=== PATIENT | male | born 1940 | race Caucasian/White ===

== ENCOUNTER 2017-08-31 16:06 | Observation (INO) | payer MEDICARE, OTHER ==
[~2017-08-31] VITALS: Ht 177.8 cm; Wt 94.4 kg
--- NOTE | ~2017-08-31 | HEMODYNAMI ---
PATIENT:JACK BRUNO MEDICAL RECORD: [id number] : 36 [id number] ADMISSION DATE: 08/31/17 Generatedon:09/01/201710:55 Patient name: JACK BRUNO Patient #: [id number] SSN: : 1940 Date of study: 09/01/2017 Page: Of Hemodynamic Procedure Report Patient Data Patient Demographics Procedure consent was obtained First Name: JACK Gender: Male Last Name: DAMION : 1940 [facility] Initial: M Age: 77 year(s) Patient #: [id number] Race: Unknown Additional ID: [id number] Contact details Address: [address] [place] [address] State: [place] City: [place] Zip code: [address] Past Medical History Allergies: No known allergies Admission Admission Data Admission Date: 08/31/2017 Admission Time: 16:06 Room #: D2119 Lab Results Lab Result Date: 09/01/2017 Lab Result Time: 0:00 Biochemistry Name Units Result Min Max BUN mg/dl 14 --(--*-)-- 7 18 Creatinine mg/dl 0.9 --(-*--)-- 0.6 1.3 CBC Name Units Result Min Max Hemoglobin g/dl 12.7 -*(----)-- 13.5 17.5 Procedure Procedure Types Cath Procedure Diagnostic Procedure [facility] w/Coronaries PCI Procedure Coronary Stent Coronary Stent Initial Miscellaneous Procedures Moderate Sedation up to 45 minutes Procedure Description Procedure Date Procedure Date: 09/01/2017 Procedure Start Time: 10:11 Procedure End Time: 10:54 Procedure Staff Name Function Agus Garcia MD Performing Physician Yobani Eubanks RN Nurse Miguelina Darnell RT Monitor Katia Arevalo RT Scrub Joy Pedersen RT Monitor Procedure Data Cath Procedure Fluoroscopy Diagnostic fluoroscopy Total fluoroscopy Time: time: 11.5 min 11.5 min Diagnostic fluoroscopy Total fluoroscopy dose: dose: 1117 mGy 1117 mGy Contrast Material Contrast Material Type Amount (ml) Isovue 300 84 Entry Location Entry Primary Successful Side Size Upsize Upsize Entry Closure Succes sful Closure Location (Fr) 1 (Fr) 2 (Fr) Remarks Device Remarks Radial Right 6 Fr artery Short Femoral Right 6 Fr Exoseal artery Short Estimated blood loss: 10 ml Diagnostic catheters Device Type Used For End Catheter Placement Terumo 5Fr David 110cm Procedure catheter Diagnostic Terumo 5Fr Procedure [place] 110cm catheter Procedure Complications No complications Procedure Medications Medication Administration Route Dosage 0.9% NaCl I.V. 100 ml/hr Oxygen NC 2 l/min Heparin Flush Bag added to field 2 bags (1000units/500ml NS) Lidocaine 2% added to field 20 Radial Cocktail added to field 1 syringe (Verapomil 2mg/Nitro 400mcg/Heparin 1500units) Versed I.V. 2 mg Fentanyl I.V. 25 mcg Radial Cocktail I.A. 1 syringe (Verapomil 2mg/Nitro 400mcg/Heparin 1500units) Angiomax (bolus) I.V. 15 ml Fentanyl I.V. 50 mcg Versed I.V. 1 mg Versed I.V. 1 mg Angiomax Drip I.V. drip 35 ml/hr (250mg/50ml NS) (Standard) Angiomax Drip I.V. drip 35 ml/hr (250mg/50ml NS) (Standard) Hemodynamics Rest HGB: 12.7 (g/dl) Heart Rate: 71 (bpm) Pressure Samples Time Site Value (mmHg) Purpose Heart Use Rate(bpm) 10:20 LV 126/-4,13 EDP 74 10:21 AO 99/55(75) Pullback 78 10:21 LV 115/7,5 Pullback 78 Gradients Valve Time Site 1 Site 2 Mean SEP/DFP Peak To Heart Use (mmHg) (sec/min) Peak Rate (mmHg) (bpm) Aortic 10:21 LV AO 15 20 16 78 115/7,5 99/55(75) Calculations Valve P-P Mean Valve Index Valve Source Name Gradient Area Flow (cm2) Aortic 16 15 16 15 Snapshots Pre Cath Intra NCS Post Cath Vital Signs Time Heart Resp SPO2 etCO2 NIBP (mmHg) Rhythm Pain Sedation Rate (ipm) (%) (mmHg) Status Level (bpm) 9:44:45 72 16 98 29.2 154/80(117) NSR 0 (11) 10(A) , No pain 9:49:31 68 14 97 36.7 139/70(108) NSR 0 (11) 10(A) , No pain 9:54:26 75 19 98 10.4 72/44(60) NSR 0 (11) 10(A) , No pain 9:59:36 73 23 94 0 127/77(99) NSR 0 (11) 10(A) , No pain 10:04:22 80 17 90 0 121/76(98) NSR 0 (11) 10(A) , No pain 10:09:07 70 16 95 0 137/74(97) NSR 0 (11) 10(A) , No pain 10:14:29 70 17 96 38.2 117/66(90) NSR 0 (11) 10(A) , No pain 10:19:13 72 14 96 0 116/70(90) NSR 0 (11) 10(A) , No pain 10:23:56 74 20 96 11.2 130/69(102) NSR 0 (11) 10(A) , No pain 10:28:41 69 18 96 26.2 129/69(102) NSR 0 (11) 10(A) , No pain 10:33:30 70 16 98 17.9 141/66(99) NSR 0 (11) 10(A) , No pain 10:38:08 74 23 94 0 117/70(91) NSR 0 (11) 10(A) , No pain 10:42:51 72 15 95 17.9 121/59(96) NSR 0 (11) 9(A) , No pain 10:47:34 74 15 99 35.9 132/73(110) NSR 0 (11) 9(A) , No pain 10:52:22 72 6 78 2.2 131/69(98) NSR 0 (11) 9(A) , No pain Medications Time Medication Route Dose Verified Delivered Reason Note s Effectiveness by by 9:46:16 0.9% NaCl I.V. 100 Yobani Per physician ml/hr Raimundo WILBURN 9:46:30 Oxygen NC 2 l/min Yobani Yobani Per physician Lorigan Lorigan RN RN 9:46:56 Heparin Flush added 2 bags Yobani Yobani used for Bag to Raimundo Eubanks procedure (1000units/500ml field RN RN NS) 9:47:13 Lidocaine 2% added 20ml Yobani Yobani for local to vial Lorigan Lorlinda anesthetic field RN RN 9:47:25 Radial Cocktail added 1 Yobani Yobani for (Verapomil to syringe Lorigan Raimundo vasodilation 2mg/Nitro field RN RN 400mcg/Heparin 1500units) 10:12:23 Versed I.V. 2 mg Yobani Yobani for sedation Raimundo Eubanks RN RN 10:12:34 Fentanyl I.V. 25 mcg Yobani Yobani for sedation Raimundo Eubanks RN RN 10:13:37 Radial Cocktail I.A. 1 Yobani Agus for (Verapomil syringe Raimundo Garcia MD vasodilation 2mg/Nitro RN 400mcg/Heparin 1500units) 10:33:17 Angiomax (bolus) I.V. 15 ml Yobani Yobani for Lorigan Raimundo anticoagulation RN RN 10:33:35 Fentanyl I.V. 50 mcg Yobani Yobani for sedation Raimundo Eubanks RN RN 10:34:20 Versed I.V. 1 mg Yobani Yobani for sedation Raimundo Eubanks RN RN 10:36:08 Versed I.V. 1 mg Yobani Yobani for sedation Raimundo Eubanks RN RN 10:37:16 Angiomax Drip I.V. 35 Yobani Yobani for (250mg/50ml NS) drip ml/hr Raimundo Eubanks anticoagulation (Standard) RN RN 10:46:56 Angiomax Drip I.V. 35 Yobani Yobani to sharp's (250mg/50ml NS) drip ml/hr Alysaigan Lorigan (Standard) RN bending machine operator Log Time Note 9:12:37 Time tracking: Regular hours 9:12:42 Plan of Care:Hemodynamics will remain stable., Cardiac rhythm will remain stable., Comfort level will be maintained., Respiratory function will remain adequate., Patient/ family verbilizes understanding of procedure., Procedure tolerated without complication., Recovers from procedure without complications.. 9:29:52 Miguelina Darnell RT(R) sent for patient. Start room use. 9:37:38 Patient received from PCU to CCL 1 Alert and oriented. Tansferred to table in Supine position. 9:37:39 Warm blankets applied, and esther hugger turned on for patient comfort. 9:37:40 Correct patient and procedure confirmed by team. 9:37:41 Signed procedure consent form obtained from patient. 9:37:42 ECG and BP/O2 sat monitors applied to patient. 9:37:43 Full Disclosure recording started 9:43:44 Vital chart was started 9:43:51 Baseline sample Acquired. 9:43:54 Rhythm: sinus rhythm 9:44:18 H&P Date Dictated: 08/31/2017 Within 30 days and on chart., H&P Addendum completed by physician on day of procedure. (MUST COMPLETE FOR ALL OUTPATIENTS). 9:44:20 Pre-op teaching completed and patient verbalized understanding. 9:44:22 Pre-procedure instructions explained to patient. 9:44:29 Family unavailable. 9:44:30 Patient NPO since Midnight. 9:44:37 Patient allergic to No known allergies 9:44:39 Is the patient allergic to Iodine/contrast media? No. 9:44:53 Is patient on blood thinner?Yes 9:44:56 ACC The patient was administered the following blood thiners within the last 24 hours: ACCPlavix 9:44:58 Patient diabetic? No. 9:45:02 Previous problem with sedation/anesthesia? No ? 9:45:04 Snore? Yes 9:45:05 Sleep apnea? Yes 9:45:11 Deviated septum? No 9:45:12 Opens mouth fully? Yes 9:45:13 Sticks out tongue? Yes 9:45:16 Airway obstruction? No ? 9:45:20 Dentures? Yes OUT 9:45:24 Pre procedure: right dorsailis pedis pulse 2+ Normal; easily identifiable; not easily obliterated 9:45:27 Modified Baldev's test Radial < 7 seconds 9:45:30 Patient pain scale 0/10 ?. 9:45:35 IV patent on arrival in left hand with 0.9% NaCl at KVO. 9:45:41 Lab results completed and on chart. 9:45:44 Right Radial & Right Groin area was prepped with chlora-prep and draped in sterile fashion 9:45:45 Alarms reviewed by R. N. 9:45:45 Sharps counted by scrub and verified by R.N. 9:46:16 0.9% NaCl 100 ml/hr I.V. was administered by Yobani Eubanks RN; Per physician; 9:46:30 Oxygen 2 l/min NC was administered by Yobani Eubanks RN; Per physician; 9:46:56 Heparin Flush Bag (1000units/500ml NS) 2 bags added to field was administered by Yobani Eubanks RN; used for procedure; 9:47:13 Lidocaine 2% 20ml vial added to field was administered by Yobani Eubanks RN; for local anesthetic; 9:47:25 Radial Cocktail (Verapomil 2mg/Nitro 400mcg/Heparin 1500units) 1 syringe added to field was administered by Yobani Eubanks RN; for vasodilation; 9:47:57 Use device set Radial Dx 9:47:58 Acist Syringe opened to sterile field. 9:48:00 Tegaderm 4 x 4 opened to sterile field. 9:48:00 Acist Manifold opened to sterile field. 9:48:01 Acist Hand Control opened to sterile field. 9:48:02 Medline Cath Pack opened to sterile field. 9:48:02 Bag Decanter opened to sterile field. 9:48:03 Terumo 6Fr Slender Glidesheath opened to sterile field. 9:48:03 St Feliciano 260cm J .035 wire opened to sterile field. 9:48:04 MBrace Wrist Support opened to sterile field. 9:51:03 Lab Result : BUN 14 mg/dl 9:51:03 Lab Result : Hemoglobin 12.7 g/dl 9:51:03 Lab Result : Creatinine 0.9 mg/dl 10:08:14 Physician arrived 10:08:15 --------ALL STOP TIME OUT------ 10:08:16 Final Timeout: patient, procedure, and site verified with staff and physician. All members of the team are in agreement. 10:08:19 Right Radial & Right Groin site verified by team. 10:08:23 Physical assessment completed. ASA score P 2 - A patient with mild systemic disease as per Agus Garcia MD. 10:08:32 Sedation plan: IV Moderate Sedation Medication:Versed, Fentanyl 10:11:15 Procedure started. 10:11:21 Local anesthetic to right radial artery with Lidocaine 2% by Agus Garcia MD.INITIAL ACCESS ONLY 10:12:23 Versed 2 mg I.V. was administered by Yobani Eubanks RN; for sedation; 10:12:34 Fentanyl 25 mcg I.V. was administered by Yobani Eubanks RN; for sedation; 10:13:02 A 6 Fr Short sheath was inserted into the Right Radial artery 10:13:37 Radial Cocktail (Verapomil 2mg/Nitro 400mcg/Heparin 1500units) 1 syringe I.A. was administered by Agus Garcia MD; for vasodilation; 10:14:05 A Terumo 5Fr David 110cm catheter was advanced over the wire and used for Procedure. 10:18:41 RCA angiography performed. 10:21:14 LV gram done using PORTER 10:21:15 LV hemodynamics recorded. 10:21:20 Injector settings: Ml/sec: 12, Volume: 8, 10:21:31 EF : 60 % 10:22:17 Catheter removed. 10:22:26 A Diagnostic Terumo 5Fr [place] 110cm catheter was advanced over the wire and used for Procedure. 10:23:16 LCA angiography performed. 10:24:14 Catheter removed. 10:26:24 [employer] BasixCompak Inflation Kit opened to sterile field. 10:26:24 IKOTECH Runway 6Fr ART 3.5 guide catheter opened to sterile field. 10:26:25 [employer] BMW [place] Hollow II J-Tip 190cm wire opened to sterile field. 10:26:25 Copilot Bleedback Control Valve opened to sterile field. 10:27:52 6 Fr ART 3.5 guide catheter was inserted over the wire 10:27:55 BMW wire advanced. 10:30:56 Guide Catheter removed. unable to cannulate vessel. 10:32:24 Direct Sitterstronic Launcher 6Fr AR 1.0 guide catheter opened to sterile field. 10:32:36 6 Fr AR 1 guide catheter was inserted over the wire 10:33:02 Vital chart was stopped 10:33:17 Angiomax (bolus) 15 ml I.V. was administered by Yobani Eubanks RN; for anticoagulation; 10:33:35 Fentanyl 50 mcg I.V. was administered by Yobani Eubanks RN; for sedation; 10:34:20 Versed 1 mg I.V. was administered by Yobani Eubanks RN; for sedation; 10:34:41 Guide Catheter removed. unable to cannulate vessel. 10:35:08 UNNABLE TO CANNULATE RCA THROUGH RADIAL. WILL PROCEED TO FEMORAL 10:35:53 Terumo 6Fr Rodeo Sheath opened to sterile field. 10:35:53 Cook 4Fr Micropuncture ([id number]) opened to sterile field. 10:36:08 Versed 1 mg I.V. was administered by Yobani Eubanks RN; for sedation; 10:36:11 Local anesthetic to right femoral artery with Lidocaine 2% by Agus Garcia MD.ADDITIONAL ACCESS 10:36:37 Access obtained with 4Fr micropunture. 10:37:10 A 6 Fr Short sheath was inserted into the Right Femoral artery 10:37:16 Angiomax Drip (250mg/50ml NS) (Standard) 35 ml/hr I.V. drip was administered by Yobani Eubanks RN; for anticoagulation; 10:37:19 Vital chart was started 10:40:22 6 Fr ART 3.5 guide catheter was inserted over the wire 10:41:00 BMW wire advanced. 10:44:38 Inflation Number: 1 A Thomas RX 3.0 x 18 stent was prepped and advanced across the Dist RCA. The stent was deployed at 14 PAVEL for 0:10 (min:sec). 10:46:00 Stent catheter was removed intact over wire. 10:46:03 Wire removed. 10:46:04 Guide catheter removed. 10:46:12 Cordis 6Fr Exoseal opened to sterile field. 10:46:19 Terumo TR Band Standard opened to sterile field. 10:46:45 Sheath removed intact; hemostasis achieved with Exoseal to the Right Femoral artery. 10:46:49 Procedure ended.(Physican Out) 10:46:56 Angiomax Drip (250mg/50ml NS) (Standard) 35 ml/hr I.V. drip was administered by Yobani Eubanks RN; to sharp's; 10:47:55 Fluoroscopy time 11.50 minutes. 10:48:00 Fluoroscopy dose: 1117 mGy 10:48:00 Flurop Dose total: 1117 10:48:04 Contrast amount:Isovue 300 84ml. 10:48:06 Sharps counted by scrub and verified by R.N. 10:48:42 Insertion/operative site no bleeding no hematoma. 10:48:46 Post-op/insertion site Right Femoral artery dressed using a 4 x 4 and Tegaderm. 10:48:51 Post right femoral artery:stable, soft, clean and dry 10:48:56 Post Procedure Pulses reassessed and unchanged 10:49:02 Post procedure: right dorsailis pedis pulse 2+ Normal; easily identifiable; not easily obliterated. 10:49:05 Post-procedure physical assessment completed. ASA score P 2 - A patient with mild systemic disease as per Agus Garcia MD. 10:49:09 Post procedure rhythm: unchanged. 10:49:11 Estimated blood loss: 10 ml 10:49:12 Post procedure instruction explained to patient.Patient verbalizes understanding. 10:49:13 Patient needs reinforcement of post procedure teaching. 10:49:26 Procedure type changed to Cath procedure, Diagnostic procedure, LHC, LHC w/Coronaries, PCI procedure, Coronary Stent, Coronary Stent Initial, Miscellaneous Procedures, Moderate Sedation up to 45 minutes 10:51:02 Procedure and supply charges have been captured, reviewed, submitted and are correct. 10:51:06 Procedure Complication : No complications 10:51:54 TR band inflated with 10cc of air. 10:51:57 See physician's report for complete and final results. 10:51:59 Report given to PCU. 10:52:03 Patient transfered to PCU with Bed. 10:54:42 Procedure ended. 10:54:42 Full Disclosure recording stopped 10:54:52 End room use (Document Last) 10:55:08 Vital chart was stopped Intervention Summary Intervention Notes Time ActionType Lesion and Equipment Action# Pressure Duration Attributes Used 10:44:38 Place stent Dist RCA [place] RX 1 14 00:10 3.0 x 18 stent Device Usage Item Name Manufacture Quantity Catalog Number [facility] Lot# / Charge Number Stock Stock Serial# Code Acist Syringe Acist 1 47189 865855 512852 248419 Spayee Tegaderm 4 x 3M 1 1626W 635121 856763 333211 5 4 Acist Acist 1 90146 938504 143761 013530 5 EzFlop - A First of Its Kind Flip Flop Inc Acist Hand Acist 1 99415 565280 533641 224338 5 Neronote Medline Cath Cardinal 1 [id number] 633205 63963 792707 5 Pack Health Bag Decanter Microtek 1 2002 624362 05203 627350 5 Nano[employer] Inc. Terumo 6Fr Terumo 1 [id number] 603753 678785 444188 [address] Fel[address] Feliciano 1 911602 577456 355501 143599 30 J .035 wire MBrace Wrist Advanced 1 [id number] 554075 43088 686444 5 Support Vascular Dynamics Terumo 5Fr Terumo 1 405023 494650 846218 744811 5 David 110cm catheter Diagnostic Terumo 1 405013 174505 816208 139924 5 Terumo 5Fr [place] 110cm catheter [facility] 1 [id number] 889282 904576 620842 15 BasixCompak Medical Inflation Kit [employer] 1 [id number] 178156 386485 626723 [address] 6Fr Scientific ART 3.5 guide catheter Huffman BMW Huffman 1 [id number] 972192 20621 951824 5 [place] II Vascular J-Tip 190cm wire Copilot Huffman 1 [id number] 987752 939637 877395 5 Bleedback Vascular Control Valve Medtronic Medtronic 1 [id number] 426254 48871 810541 1 Launcher 6Fr AR 1.0 guide catheter Terumo 6Fr Terumo 1 [id number] 138979 516733 531767 40 Rodeo Sheath Cook 4Fr Cook Medical 1 [id number] 478801 049358 955494 5 Micropuncture ([id number]) [place] RX 3.0 x Medtronic 1 [id number] 804198 7565964 926032 5 [id number] 18 stent Cordis 6Fr Cardinal 1 EX600 110349 861290 979530 10 Function Space Terumo TR Terumo 1 [id number] 246503 001210 329501 40 Band Standard Signature Audit Jewett Stage Time Signature Unsigned Intra-Procedure 09/01/2017 Miguelina Darnell 10:55:06 AM RT(R) Signatures Monitor : Miguelina Darnell Signature : RT Date : Time : Monitor : Joy Signature : Counts RT Date : Time : [address] [place] [address]
[2017-08-31] MEDS ORDERED: SYNTHROID88 MCG PO (16:30)
[2017-08-31 16:36] VITALS: BP 128/86; BMI 29.4
[2017-08-31 18:09] LABS: BASOPHILS 0.3 % (0-2); EOSINOPHILS 1.2 % (0-7); HEMATOCRIT 38.6 % (42.0-54.0); HEMOGLOBIN 12.6 g/dL (13.5-17.5); IMMATURE GRANULOCYTES 0.1 % (0-5); LYMPHOCYTES 26.2 % (15-50); MCH 30.8 pg (26.0-34.0); MCHC 32.6 g/dL (31.0-37.0); MCV 94.4 fL (80.0-100.0); MEAN PLATELET VOLUME 13.9 fL (7.4-10.4); MONOCYTES 10.4 % (2-11); NEUTROPHILS 61.8 % (40-80); PLATELET COUNT 134 10x3/uL (130-400); RBC 4.09 10x6/uL (4.20-6.10); RDW 13.7 % (11.5-14.5); WBC 7.2 10x3/uL (4.8-10.8)
[2017-08-31 19:01] LABS: APTT 27.4 SECONDS (22.8-39.4); INR 1.06 (0.85-1.17); PROTIME 13.7 SECONDS (11.6-15.0)
[2017-08-31 19:46] LABS: ALBUMIN 3.7 g/dL (3.4-5.0); ALKALINE PHOSPHATASE 81 U/L (46-116); ALT (SGPT) 27 U/L (10-68); BILIRUBIN - TOTAL 0.31 mg/dL (0.2-1.3); CALC OSMOLALITY 288 mosm/kg (275-300); CALCIUM 8.4 mg/dL (8.5-10.1); CARBON DIOXIDE 26.5 mmol/L (21.0-32.0); CHLORIDE - SERUM 106 mmol/L (98-107); CKMB 2.9 U/L (0.0-3.6); CREATINE KINASE 132 UL (21-232); CREATININE - SERUM 0.7 mg/dL (0.6-1.3); GLUCOSE 112 mg/dL (74-106); POTASSIUM - SERUM 3.7 mmol/L (3.5-5.1); PROTEIN - SERUM 6.7 g/dL (6.4-8.2); SODIUM 144 mmol/L (136-145); THYROID STIMULATING HORMONE 1.85 uIU/mL (0.36-3.74); UREA NITROGEN 16 mg/dL (7-18); eGFR NON AFRICAN AMERICAN > 90 mL/min (90-120)
[2017-08-31 19:52] LABS: TROPONIN-I 0.074 ng/mL (0.000-0.060)
[2017-08-31 20:30] VITALS: BP 156/74
[2017-09-01 00:25] LABS: CKMB 2.5 U/L (0.0-3.6); CREATINE KINASE 194 UL (21-232)
[2017-09-01 00:26] LABS: TROPONIN-I 1.304 ng/mL (0.000-0.060)
[2017-09-01 00:31] VITALS: BP 124/77
[2017-09-01 05:10] VITALS: BP 113/66
[2017-09-01 05:38] LABS: BASOPHILS 0.3 % (0-2); HEMATOCRIT 39.2 % (42.0-54.0); HEMOGLOBIN 12.7 g/dL (13.5-17.5); IMMATURE GRANULOCYTES 0.3 % (0-5); LYMPHOCYTES 26.9 % (15-50); MCH 30.5 pg (26.0-34.0); MCHC 32.4 g/dL (31.0-37.0); MCV 94.2 fL (80.0-100.0); MEAN PLATELET VOLUME 14.3 fL (7.4-10.4); MONOCYTES 11.4 % (2-11); NEUTROPHILS 59.1 % (40-80); PLATELET COUNT 113 10x3/uL (130-400); RBC 4.16 10x6/uL (4.20-6.10); RDW 13.6 % (11.5-14.5); WBC 7.2 10x3/uL (4.8-10.8)
[2017-09-01 05:56] LABS: CALC OSMOLALITY 284 mosm/kg (275-300); CALCIUM 8.7 mg/dL (8.5-10.1); CARBON DIOXIDE 26.3 mmol/L (21.0-32.0); CHLORIDE - SERUM 106 mmol/L (98-107); CKMB 5.2 U/L (0.0-3.6); CREATINE KINASE 133 UL (21-232); GLUCOSE 120 mg/dL (74-106); POTASSIUM - SERUM 3.8 mmol/L (3.5-5.1); SODIUM 142 mmol/L (136-145); UREA NITROGEN 14 mg/dL (7-18)
[2017-09-01 05:58] LABS: CREATININE - SERUM 0.9 mg/dL (0.6-1.3); TROPONIN-I 2.493 ng/mL (0.000-0.060); eGFR NON AFRICAN AMERICAN 86 mL/min (90-120)
[2017-09-01 08:11] VITALS: BP 101/62
[2017-09-01 10:57] VITALS: Ht 177.8 cm; Wt 94.4 kg
[2017-09-01] MEDS ORDERED: BAYER CHEWABLE81 MG PO (12:14)
[2017-09-01] MEDS ORDERED: PLAVIX75 MG PO (12:14)
[2017-09-01 16:13] VITALS: BP 153/61
[2017-09-01 20:55] VITALS: BP 123/70
[2017-09-02 00:45] VITALS: BP 115/61
[2017-09-02 05:40] LABS: BASOPHILS 0.3 % (0-2); EOSINOPHILS 1.4 % (0-7); HEMATOCRIT 39.1 % (42.0-54.0); HEMOGLOBIN 12.6 g/dL (13.5-17.5); IMMATURE GRANULOCYTES 0.1 % (0-5); MCH 30.7 pg (26.0-34.0); MCHC 32.2 g/dL (31.0-37.0); MCV 95.1 fL (80.0-100.0); MEAN PLATELET VOLUME 13.8 fL (7.4-10.4); NEUTROPHILS 60.2 % (40-80); PLATELET COUNT 132 10x3/uL (130-400); RBC 4.11 10x6/uL (4.20-6.10); RDW 13.6 % (11.5-14.5); WBC 7.9 10x3/uL (4.8-10.8)
[2017-09-02 05:46] LABS: CALC OSMOLALITY 283 mosm/kg (275-300); CALCIUM 8.6 mg/dL (8.5-10.1); CARBON DIOXIDE 28.2 mmol/L (21.0-32.0); CHLORIDE - SERUM 105 mmol/L (98-107); CREATININE - SERUM 0.8 mg/dL (0.6-1.3); GLUCOSE 127 mg/dL (74-106); POTASSIUM - SERUM 4.2 mmol/L (3.5-5.1); SODIUM 141 mmol/L (136-145); UREA NITROGEN 14 mg/dL (7-18); eGFR NON AFRICAN AMERICAN > 90 mL/min (90-120)
[2017-09-02 06:12] VITALS: BP 139/71
[2017-09-02 07:47] VITALS: BP 126/72
== END 2017-09-02 11:19 | disposition home or self-care (01) ==
LOC: D.M2 16:06 → OBSVTIME 16:07 → D.M2 09-02 11:19
PROVIDERS: Family Medicine Adult Medicine; ADMIT Emergency Medicine
DX: I21.4 Non-ST elevation (NSTEMI) myocardial infarction (principal); I25.10 Atherosclerotic heart disease of native coronary artery without angina pectoris; Z87.891 Personal history of nicotine dependence; E07.9 Disorder of thyroid, unspecified

== ENCOUNTER → 2017-10-22 16:59 | Outpatient (CLI) | payer MEDICARE, OTHER ==
[2017-09-01 10:57] VITALS: BMI 30.9
[~2017-10-22 16:59] MED LIST: BAYER CHEWABLE81 MG PO; PLAVIX75 MG PO; SYNTHROID88 MCG PO
[2017-10-22 17:42] LABS: LDL-HDL RATIO 0.5 ratio (1.5-3.5)
== END | disposition home or self-care (01) ==
LOC: D.LABREF 16:59
PROVIDERS: Internal Medicine Cardiovascular Disease
DX: I10 Essential (primary) hypertension (principal)

== ENCOUNTER → 2018-07-20 13:29 | Outpatient (CLI) | payer MEDICARE, OTHER ==
[2017-09-01 10:57] VITALS: BMI 30.9
--- NOTE | ~2018-07-20 | EC ---
PATIENT:JACK BRUNO DATE OF SERVICE: 07/20/18 SEX: M MEDICAL RECORD: [id number] DATE OF : 36 [facility] AGE OF PATIENT: 77 ADMISSION DATE: 07/20/18 REFERRING PHYSICIAN: INTERPRETING PHYSICIAN: SYLVAIN CARABALLO MD ECHOCARDIOGRAM REPORT ECHO CHARGES 4 ECHO COMPLETE Date: 07/20/18 CLINICAL DIAGNOSIS: HTN, CAD ECHOCARDIOGRAPHIC MEASUREMENTS (adult normal given) AC root (d.<3.7cm) 3.8 cm LV Septum d (<1.2 cm> 1.2 cm Valve Excursion 1.9 cm LV Septum (systole) 1.3 cm Left Atria (s.<4.0cm> 3.3 cm LVPW d(<1.2cm) 0.9 cm RV (d.<2.3cm) 2.8 cm LVPW (sytole) 1.0 cm LV diastole(<5.6CM) 5.9 cm MV E-F(>70mm/sec) cm LV systole 5.0 cm LVOT Diameter 1.8 cm MV exc.(>10mm) cm Est.ejection fraction (50-75%) % DOPPLER: LVIT cm/sec A 89 cm/sec E 58 cm/sec LA cm/sec RVSP 15.3 mmHg LVOT 107 cm/sec AOP1/2T m/s Asc. Ao 140 cm/sec RVOT 83 cm/sec RA cm/sec PA 98 cm/sec AV Gradient Peak 7.9 mmHg AV Mean 4.9 mmHg AV Area 1.8 cm MV Gradient Peak 2.2 mmHg MV Mean 1.1 mmHg MV Area cm COMMENTS: Herb Counselor: Yaniv NASH Deputy Chief Counsel: 4 Dr. Caraballo TAPE# PACS Pericardial Effusion N DATE OF SERVICE: PROCEDURE: Transthoracic echocardiogram. FINDINGS: 1. Left ventricle shows mild left ventricular hypertrophy. Ejection fraction appears to be preserved. Difficult to see endocardial structures. There appears to be mild dilatation of left ventricle. Ejection fraction is 55%. Inflow characteristics are consistent with diastolic dysfunction. 2. The left atrium not well visualized, but appears to be grossly normal. ECHOCARDIOGRAM REPORT [id number] JACK BRUNO 3. The aortic valve is normal. 4. The mitral valve is grossly normal. 5. The aortic valve shows normal structure and function. 6. The right atrium appears to be mildly dilated. 7. The RVSP is normal. 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 TRANSINT:[id number] Voice Confirmation ID: [id number] DOCUMENT ID: [id number] SYLVAIN CARABALLO MD at 2344 CC: [id number] DICTATION DATE: 07/21/18908 BELLOWS FILLER: 07/21/18 1047 DEP CLI 07/20/18 [place] [id number] [place] [address]
== END | disposition home or self-care (01) ==
LOC: D.ECHO 13:29
DX: I10 Essential (primary) hypertension (principal); I25.119 Atherosclerotic heart disease of native coronary artery with unspecified angina pectoris; E87.5 Hyperkalemia

== ENCOUNTER → 2018-07-20 16:15 | Outpatient (CLI) | payer MEDICARE, OTHER ==
[2017-09-01 10:57] VITALS: BMI 30.9
[2018-07-20 18:22] LABS: ALBUMIN 4.1 g/dL (3.4-5.0); BILIRUBIN - DIRECT 0.11 mg/dL (0.00-0.30); BILIRUBIN - INDIRECT 0.29 mg/dL (0.00-1.00); BILIRUBIN - TOTAL 0.4 mg/dL (0.2-1.3); CHOL - HDL RATIO 3.4 ratio (2.3-4.9); LDL-HDL RATIO 1.3 ratio (1.5-3.5); PROTEIN - SERUM 7.2 g/dL (6.4-8.2)
== END | disposition home or self-care (01) ==
LOC: D.LABREF 16:15
PROVIDERS: Internal Medicine Cardiovascular Disease
DX: E78.5 Hyperlipidemia, unspecified (principal)